=== PATIENT | female | born 1975 | race Caucasian/White ===

== ENCOUNTER 2020-08-27 15:07 | Inpatient (IN) ==
[2020-08-27] MEDS ORDERED: 0.9 % Sodium Chloride 1,000 ML IVC ONE (15:36)
[2020-08-27 15:44] LABS: Basophils % 0.6 %; Eosinophils # 0.2 K/mcL (0.0-0.6); Eosinophils % 2.4 %; Hematocrit 43.3 % (35.3-44.9); Hemoglobin 14.4 g/dL (11.5-15.4); Immature Granulocytes % 0.5 % (0-4); Lymphocytes # 1.6 K/mcL (0.6-4.6); Lymphocytes % 26.4 %; Mean Corpuscular HGB Conc 33.3 g/dL (31.6-35.5); Mean Corpuscular Hemoglobin 30.5 pg (28.0-33.3); Mean Corpuscular Volume 91.7 fL (83.0-100.0); Mean Platelet Volume 9.4 fL (9.4-12.4); Monocytes # 0.4 K/mcL (0.0-1.3); Platelet Count 267 K/mcL (140-400); Red Blood Count 4.72 M/mcL (3.82-4.97); Red Cell Distribution Width 11.8 % (11.5-14.5); Segmented Neutrophils % 64.1 %; White Blood Count 6.2 K/mcL (4.3-11.1)
[2020-08-27 15:53] LABS: Estimated Average Glucose 111 mg/dl
[2020-08-27 16:19] LABS: Acetaminophen < 10 mcg/mL (10-20); BUN/Creatinine Ratio 10 (6-26); Blood Urea Nitrogen 6 mg/dL (6-20); Calcium 8.7 mg/dL (8.6-10.3); Carbon Dioxide 23 mEq/L (23-29); Chloride 110 mEq/L (98-107); Chol/HDL Ratio 3.3 (0-4.9); Cholesterol 195 mg/dL (< 200); Ethanol 262 mg/dL (Less than 10); Glucose 104 mg/dL (70-105); HDL Cholesterol 60 mg/dL (40-59); LDL Cholesterol,Calculated 67 mg/dL (< 100); Magnesium 2.2 mg/dL (1.6-2.6); Osmolality,Calculated 292 (280-300); Potassium 3.5 mEq/L (3.5-5.1); Salicylate < 2.5 mg/dL (15.0-30.0); Sodium 142 mEq/L (136-145); Triglycerides 341 mg/dL (< 150); eGFR For African Americans > 60 (> 60); eGFR For Non-African Americans > 60 (> 60)
[2020-08-27 16:30] LABS: Bilirubin,Urine Negative (Negative); Blood,Urine Negative (Negative); Clarity,Urine Clear (Clear); Color,Urine Yellow (Yellow); Glucose,Urine (UA) Normal (Normal); Ketones,Urine Negative (Negative); Leukocyte Esterase,Urine Trace (Negative); Nitrite,Urine Negative (Negative); Protein,Urine 30 mg/dL (Neg-Trace); Urobilinogen,Urine Normal (Normal)
[2020-08-27 16:47] LABS: Squamous Epithelial Cell,Urine Few per hpf (None-Few)
[2020-08-27 16:48] LABS: Amorphous Sediment,Urine Few per hpf (None-Few)
[2020-08-27 16:52] LABS: Amphetamine Screen,Urine Negative ng/mL (Cutoff=1000); Barbiturate Screen,Urine Negative ng/mL (Cutoff=200); Benzodiazepines Screen,Urine Negative ng/mL (Cutoff=200); Cannabinoid Screen,Urine Negative ng/mL (Cutoff = 50); Cocaine Screen,Urine Negative ng/mL (Cutoff= 300); Opiate Screen,Urine Negative ng/mL (Cutoff=300); Phencyclidine Screen,Urine Negative ng/mL (Cutoff=25)
[2020-08-27] MEDS ORDERED: *HR* LORazepam 2 MG/ML VIAL IVP ONE (16:58)
[2020-08-28] MEDS ORDERED: MOM Conc 10 ML UD.LIQ PO PRN (06:09)
[2020-08-28] MEDS ORDERED: Mag Hydrox/Al Hydrox/Simeth 30 ML UDC PO PRN (06:09)
[2020-08-28] MEDS ORDERED: Ibuprofen 400 MG TABLET PO PRN (06:09)
[2020-08-28] MEDS ORDERED: haloperidoL 5 MG TABLET PO PRN (06:09)
[2020-08-28] MEDS ORDERED: Haloperidol Lactate 5 MG/ML VIAL IM PRN (06:09)
[2020-08-28] MEDS ORDERED: traZODone 50 MG TABLET PO PRN (06:09)
[2020-08-28] MEDS ORDERED: hydrOXYzine pamoate 25 MG CAPSULE PO PRN (06:09)
[2020-08-28] MEDS ORDERED: *HR* LORazepam 1 MG TABLET PO PRN (06:09)
[2020-08-28] MEDS ORDERED: *HR* LORazepam 2 MG/ML VIAL IM PRN (06:09)
[2020-08-29 09:38] VITALS: BP 115/77
== END 2020-08-29 15:00 | disposition home or self-care (01) | DRG 918 ==
LOC: EMEROOARM 15:07 → 1ANU 08-28 06:03
PROVIDERS: ADMIT Psychiatry & Neurology Forensic Psychiatry; ATTEND Psychiatry & Neurology Forensic Psychiatry